=== PATIENT | female | born 1945 | race Caucasian/White ===

== ENCOUNTER 2019-02-01 10:54 | Outpatient (CLI) | payer MEDICARE, OTHER, SELFPAY ==
--- NOTE | 2019-02-01 09:49 | DI.RAD_ITS ---
SYMPTOM/DIAGNOSIS: PAIN LEFT SHOULDER: Two views. No priors At the glenohumeral joint there is subchondral sclerosis and cyst formation, Periarticular osteophytes are seen. There is flattening of the articular surfaces. Mild hypertrophic changes are seen at the acromioclavicular joint. The bones appear intact. Soft tissues are unremarkable. IMPRESSION: Severe osteoarthritis of the left shoulder.
== END 2019-02-01 11:14 ==
PROVIDERS: Visit Provider Orthopaedic Surgery
DX: M19.012 Primary osteoarthritis, left shoulder (principal); M25.512 Pain in left shoulder
CPT/HCPCS: 99201; 99202; 73030

== ENCOUNTER 2019-02-07 06:40 | Day surgery (SDC) | payer MEDICARE, OTHER, SELFPAY ==
[2019-02-07 06:59] VITALS: BP 133/64; PULSE 60; RESP 18; TEMP 36.5; O2SAT 95
[2019-02-07] MEDS: methylPREDNISolone ACETATE 80 MG/ML VIAL (07:43)
--- NOTE | 2019-02-07 07:53 | PDOC.DSDIS_ITS ---
Discharge Plan Disposition Patient Disposition: HOME Condition: Good Discharge Details Reason For Visit: C-ARM GUIDED L SHOULDER INJECTION Attending Provider: Chiki Capellan Primary Care Provider: Unknown,Unknown Home Meds and New Rx's Prescriptions: Continued omeprazole 20 mg capsule,delayed release(DR/EC) 20 mg PO DAILY RF: 0 propranolol 80 mg tablet 80 mg PO DAILY RF: 0 propranolol 20 mg tablet 20 mg PO DAILY RF: 0 simvastatin 20 mg tablet 20 mg PO DAILY RF: 0 montelukast 10 mg tablet 10 mg PO DAILY RF: 0 Breo Ellipta 100-25 mcg/dose blister with device 1 inh IH DAILY RF: 0 fluticasone propionate [Allergy Relief (fluticasone)] 50 mcg/actuation spray,suspension 1 spray JERSON DAILY RF: 0 meloxicam 7.5 mg tablet 7.5 mg PO DAILY PRNRF: 0 Restasis MultiDose 0.05 % drops 1 drp OP Q12H RF: 0 Breo Ellipta 100-25 mcg/dose Blister With Device 1 inh INHALATION DAILY RF: 0 Discharge Instructions Additional Instructions: Rest your L shoulder for next 48 hours. After 48 hours, gradually resume your usual activities as tolerated. Apply ice bag or frozen vegetables to L shoulder 4 times/day for 1 hour each time over next [address] facecloth between skin and ice bag. Take tylenol or ibuprofen for pain,if needed. Follow up with in one month. Referrals: Chiki Capellan MD [ [facility] STAFF PHYSICIAN] - (f/u in one month.) Activity:: Activity as Tolerated Diet:: As Tolerated Discharge Orders Discharge Orders: Discharge Order (Routine); Ordered 02/07/19 Ordered By: Chiki Capellan DS: Diagnosis Discharge Diagnosis (1) Osteoarthritis of left shoulder: Status: Acute
--- NOTE | 2019-02-07 08:04 | DI.RAD_ITS ---
SYMPTOM/DIAGNOSIS: OA LT SHOULDER, INJECTION IN OR C-ARM LEFT SHOULDER: Fluoroscopy Time: 3.9 seconds Fluoroscopy was provided for Dr. Capellan for guidance with shoulder injection. Severe degenerative changes of the glenohumeral joint are demonstrated. Please see procedure note for details.
--- NOTE | 2019-02-07 15:08 | ROE_ITS ---
DATE OF PROCEDURE: February 07, 2019 PREOPERATIVE DIAGNOSIS: Osteoarthritis left shoulder. POSTOPERATIVE DIAGNOSIS: Same. PROCEDURE: C-arm guided injection, left shoulder joint with steroid. ANESTHESIA: Local. SURGEON: Chiki Capellan M.D. INDICATIONS: This is a 73-year-old white female with disabling pain from osteoarthritis of the left shoulder. She is requesting a steroid injection of her left shoulder to try to alleviate her pain an d as a temporizing measure before considering arthroplasty of her shoulder. She has a friend who got good relief from an injection and she wants to try it. The risks and complications of the procedure were explained to the patient in detail preoperatively. PROCEDURE: The patient was taken to the Operating Room on 02/07/19. She was placed supine on the oper ating table. Using the C-arm image intensifier I place a uterine forceps over the shoulder until it' s centered over the humeral head. This is confirmed with the C-arm. I then marked the area with a p en. I prepped the skin with alcohol and put an 18 gauge spinal needle through the area that was jesu ed until I encountered the femoral head. Another AP image with the C-arm confirmed that the needle w as in the joint space. I then injected her shoulder joint with approximately 20 cc's of 0.25% Marcai ne with an epinephrine solution along with 80 mg of Depo-Medrol. I then removed the needle, applied pressure to the puncture wound and then put a Band-Aid on. I proceeded to passively range her should er for a couple of minutes. Within a couple of minutes she had excellent relief of pain and marked i mprovement in both passive and active motion of her left shoulder. The patient was then discharged t o the Day Surgery Unit in good condition. The patient was given instructions to rest her shoulder for the next 48 hours. She is to apply ice t o the shoulder four times a day for an hour each time for the next 48 hours. She should take Tylenol or ibuprofen for pain. After 48 hours she should gradually begin to resume activities with her left shoulder as tolerated. She should follow-up with me in one month.
== END 2019-02-07 08:31 | disposition home or self-care (01) ==
PROVIDERS: PCP Family Medicine; Visit Provider Orthopaedic Surgery
PROC: (CPT 20610; principal; 2019-02-07 07:30)
DX: M19.012 Primary osteoarthritis, left shoulder (principal); M25.512 Pain in left shoulder
CPT/HCPCS: 20610; 77002; J1040

== ENCOUNTER 2019-02-10 11:26 | Outpatient (CLI) | payer MEDICARE, OTHER, SELFPAY ==
--- NOTE | 2019-02-10 09:32 | DI.RAD_ITS ---
SYMPTOM/DIAGNOSIS: BILAT KNEE PAIN LEFT KNEE: Two views were obtained. There is marked loss of the patellofemoral cartilaginous joint space with subchondral sclerosis of the patella and trochlear region of the femur. On the AP view, there is question of lateral patellar subluxation. There is chondrocalcinosis of the medial and lateral tibiofemoral joint. Prominent marginal osteophytes are noted associated with lateral tibiofemoral joint and to a lesser degree patellofemoral joint and medial tibiofemoral joint. CONCLUSION: Degenerative changes as described above. RIGHT KNEE: Two views were obtained. There is marked loss of the cartilaginous joint space of the patellofemoral joint. The patella may be laterally subluxed on the AP view. There are prominent hypertrophic changes seen involving the tibiofemoral joints as well as the patellofemoral joint. CONCLUSION: Degenerative changes as described above, most marked involving patellofemoral joint.
== END 2019-02-10 11:46 ==
PROVIDERS: Visit Provider Orthopaedic Surgery
DX: M25.561 Pain in right knee (principal); M25.562 Pain in left knee; M17.0 Bilateral primary osteoarthritis of knee
CPT/HCPCS: 99213; 73560

== ENCOUNTER → 2019-03-08 09:32 | Outpatient (BNVA) | payer MEDICARE, OTHER, SELFPAY | PROVIDERS: Visit Provider Orthopaedic Surgery | DX: M19.012 Primary osteoarthritis, left shoulder (principal); Z98.890 Other specified postprocedural states | CPT/HCPCS: 99213 ==

== ENCOUNTER 2021-03-12 14:50 | Outpatient (CLI) | payer MEDICARE, OTHER, SELFPAY ==
--- NOTE | 2021-03-12 14:00 | DI.RAD_ITS ---
Exam(s) XR SHOULDER LT COMPLETE 2+V EXAM: XR SHOULDER LT COMPLETE 2+V CLINICAL HISTORY: LEFT SHOULDER PAIN. TECHNIQUE: 2D digital imaging was performed. COMPARISON: CR XR SHOULDER RT COMPLETE 2+V from 03/12/2021 FINDINGS: There advanced osteoarthritic degenerative narrowing changes in the glenohumeral joint [id number] a pposition and a large osteophyte on the inferior articular surface of the humeral head. There is mil d diminution of the subacromial space. On the axial view there is an element of posterior subluxatio n of the humeral head relative the glenoid fossa. Also on the axial views suggestion of possible os acromiale. Only mild degenerative changes evident in the AC joint. IMPRESSION: DATA REPOSITORY: RADIATION DOSE DELIVERED:
--- NOTE | 2021-03-12 14:00 | DI.RAD_ITS ---
Exam(s) XR SHOULDER RT COMPLETE 2+V EXAM: XR SHOULDER RT COMPLETE 2+V CLINICAL HISTORY: RIGHT SHOULDER PAIN. TECHNIQUE: 2D digital imaging was performed. COMPARISON: No exams were available for comparison FINDINGS: No evidence of fracture or dislocation. There are moderate-advanced degenerative changes with mild j oint space narrowing and also osteophyte on the inferior articular surface of the humeral head. No s ubacromial soft tissue calcifications evident. There are 2 calcifications projected over the lateral half of the humeral head probably intraosseous given that there are not seen as extraosseous on the axial image. Possibly related to degenerative subarticular cysts. There are benign appearance. Mil d degenerative changes noted in the AC joint. No evidence of os acromiale. IMPRESSION: DATA REPOSITORY: RADIATION DOSE DELIVERED:
== END 2021-03-12 14:51 | disposition home or self-care (01) ==
LOC: DIORS 14:51
PROVIDERS: Visit Provider Student in an Organized Health Care Education/Training Program
DX: M19.012 Primary osteoarthritis, left shoulder (principal); M25.511 Pain in right shoulder; M19.011 Primary osteoarthritis, right shoulder; M25.512 Pain in left shoulder
CPT/HCPCS: 99203; 99214; 73030

== ENCOUNTER → 2022-01-28 12:59 | Outpatient (BNVA) | payer MEDICARE, OTHER, SELFPAY | PROVIDERS: Visit Provider Student in an Organized Health Care Education/Training Program | DX: M75.102 Unspecified rotator cuff tear or rupture of left shoulder, not specified as traumatic (principal); M75.22 Bicipital tendinitis, left shoulder; M19.012 Primary osteoarthritis, left shoulder | CPT/HCPCS: 99214 ==

== ENCOUNTER → 2022-01-31 00:33 | Outpatient (CLI) | payer MEDICARE, OTHER, SELFPAY ==
--- NOTE | 2022-01-31 07:15 | DI.CT_ITS ---
Exam(s) CT UPPER EXTREMITY LT WO EXAM: CT UPPER EXTREMITY LT WO CLINICAL HISTORY: L SHOULDER PAIN, ARTHRITIS LT SHOULDER REGION, M19.012, OA. TECHNIQUE: Imaging Protocol: Axial computed tomography images with coronal and sagittal reformatted images were created and reviewed. COMPARISON: CR XR SHOULDER LT COMPLETE 2+V from 03/12/2021 FINDINGS: Bones: There is no acute fracture or dislocation. Note is made of an os acromiale. Bony alignment is satisfactory. No cellulitic or osteomyelitic changes are identified. Mild degenerative changes a re seen at the acromioclavicular joint. There are marked degenerative changes seen at the glenohumer al joint with joint space narrowing, osteophytes, subchondral cysts and subchondral sclerosis. No avalos spicious lytic or sclerotic lesions are present. Soft Tissues: There is a 4.4 AP by 3.9 transverse by 5.7 craniocaudad cm hypodense mass in the lower pole of the right thyroid gland. It extends into the superior mediastinum. IMPRESSION: 1. Marked osteoarthritis of the glenohumeral joint. 2. Right thyroid mass. Nonemergent thyroid ultrasound is recommended for further evaluation. Incidental Findings RADIATION DOSE DELIVERED: 608.36mGy.cm Total DLP 608.36mGy.cm Total DLP DATA REPOSITORY: All CT scans at this facility are submitted to the National Radiology Data Registry (NRDR) Dose Index Registry (DIR) with the [employer] (ACR). RADIATION OPTIMIZATION: All CT scans at this facility use at least one of these dose optimization te chniques: automated exposure control; mA and/or kV adjustment per patient size (includes targeted exa ms where dose is matched to clinical indication); or iterative reconstruction.
== END ==
PROVIDERS: Visit Provider Student in an Organized Health Care Education/Training Program
DX: M19.012 Primary osteoarthritis, left shoulder (principal); E07.9 Disorder of thyroid, unspecified
CPT/HCPCS: 73200

== ENCOUNTER 2022-02-18 01:28 | Outpatient (CLI) | payer MEDICARE, OTHER, SELFPAY ==
[2022-02-18 12:26] LABS: Source Nasal/Nares
[2022-02-18 14:35] LABS: COVID-19 PCR Negative (Negative)
== END 2022-02-18 01:29 | disposition home or self-care (01) ==
PROVIDERS: Visit Provider Student in an Organized Health Care Education/Training Program
DX: Z20.822 Contact with and (suspected) exposure to COVID-19 (principal); Z01.818 Encounter for other preprocedural examination
CPT/HCPCS: 87635

== ENCOUNTER 2022-02-18 20:06 | Outpatient (REF) | payer MEDICARE, OTHER, SELFPAY ==
[2022-02-18 16:23] LABS: HCT 35.9 % (36.0-46.0); HGB 11.4 g/dL (11.2-15.7); MCH 28.1 pg (27.0-33.0); MCHC 31.8 % (32.0-36.0); MCV 89 fL (80-95); Platelet Count 199 10^3/uL (130-400); RBC 4.05 10^6/uL (3.93-5.22); RDW 13.9 % (11.7-14.6); RDW-SD 45.3 fL; WBC 6.94 10^3/uL (4.4-10.8)
[2022-02-18 16:38] LABS: ALT 27 U/L (14-59); AST 22 U/L (15-37); Albumin 3.4 g/dL (3.4-5.0); Alkaline Phosphatase 75 U/L (46-116); Anion Gap 10.1 mmol/L (3-11); BUN 19 mg/dL (7-18); Bilirubin, Total 0.4 mg/dL (0.2-1.0); CO2 25.9 mmol/L (21.0-32.0); CREATININE 0.9 mg/dL (0.55-1.02); Calcium 8.8 mg/dL (8.5-10.1); Chloride 104 mmol/L (98-107); Glucose 104 mg/dL (74-106); Potassium 4.3 mmol/L (3.5-5.1); Sodium 140 mmol/L (136-145); Total Protein 6.3 g/dL (6.4-8.2)
== END 2022-02-18 20:07 | disposition home or self-care (01) ==
LOC: NCHCN 20:06
PROVIDERS: Visit Provider Family Medicine
DX: Z01.818 Encounter for other preprocedural examination (principal)
CPT/HCPCS: 80053; 85027

== ENCOUNTER 2022-02-20 07:21 | Inpatient (IN) | payer MEDICARE, OTHER, SELFPAY ==
[2022-02-20] VITALS (13 sets, daily range): BP systolic 115–178; BP diastolic 60–78; PULSE 51–79; RESP 13–21; TEMP 35–36.9; O2SAT 90–98; BMI 30.4
--- NOTE | 2022-02-20 07:15 | DI.RAD_ITS ---
Exam(s) XR SHOULDER LT COMPLETE 2+V EXAM: XR SHOULDER LT COMPLETE 2+V CLINICAL HISTORY: Portable in PACU postop. TECHNIQUE: 2D digital imaging was performed. Three views. Portable exam COMPARISON: CT CT UPPER EXTREMITY LT WO from 01/31/2022 FINDINGS: Patient is status post placement of a reverse shoulder prosthesis. The positioning is suboptimal wit h the prosthesis appears satisfactorily aligned. There is residual postsurgical air in the soft tiss ue. DATA REPOSITORY: RADIATION DOSE DELIVERED:
[2022-02-20] MEDS: Lactated Ringers 1,000 ML 30 ML IV ×2 (08:00→21:11)
--- NOTE | 2022-02-20 08:22 | W.ANESPRE ---
General Info Date of Service Date Performed: 02/20/22 Height: 5 ft 6 in Weight: 85.4 kg Body Mass Index (BMI): 30.4 Surgical Procedure: Operation Date: 02/20/22 09:55 Proposed Procedure Side Surgeon p Reverse Shoulder Total Arthroplasty w/Biceps Tenodesis and any other indicated procedures Left Agustin Patrick MD Pre-Op Diagnosis Post-Op Diagnosis (1) Arthritis of left shoulder region (2) Left rotator cuff tear (3) Tendinitis of long head of biceps brachii of left shoulder Meds Allergies and Home Medications Allergies Allergy/AdvReac Type Severity Reaction Status Date / Time No Known Drug Allergies AdvReac Verified 02/20/22 07:04 Home Medication Medication Instructions Recorded fluticasone propionate 50 1 spray intranasal DAILY 02/01/19 mcg/actuation nasal spray,suspension (Allergy Relief (fluticasone)) meloxicam 7.5 mg tablet 7.5 mg PO DAILY PRN 02/01/19 montelukast 10 mg tablet 10 mg PO DAILY 02/01/19 propranolol 80 mg tablet 80 mg PO DAILY 02/01/19 simvastatin 20 mg tablet 20 mg PO DAILY 02/01/19 clonazepam 0.5 mg disintegrating 0.5 mg PO DAILY 03/12/21 tablet famotidine 20 mg tablet 20 mg PO DAILY 03/12/21 fluticasone fur. 100 mcg-umeclid 1 inh inhalation DAILY 03/12/21 62.5 mcg-vilant 25 mcg inhalat.powder (Trelegy Ellipta) lifitegrast 5 % eye drops in a 1 drp ophthalmic (eye) BID 03/12/21 dropperette (Xiidra) pantoprazole 40 mg tablet,delayed 40 mg PO DAILY 03/12/21 release propranolol 20 mg tablet 40 mg PO DAILY 01/28/22 aspirin 81 mg capsule,delayed 81 mg PO DAILY 02/19/22 release cetirizine 10 mg tablet (Zyrtec) 10 mg PO DAILY PRN 02/20/22 Current Visit Medications: Current Medications Generic Name Dose Route Start Last Admin Trade Name Freq PRN Reason Stop Dose Admin Acetaminophen 1,000 mg 02/20/22 07:21 Acetaminophen 500 Mg Tab PO Q6H PRN PRN Cefazolin Sodium 1,000 mg 02/20/22 07:30 Cefazolin 1,000 Mg Vial IVPB 02/20/22 23:31 Q8H ISIDRO Diphenhydramine HCl 25 mg 02/20/22 07:21 Diphenhydramine 25 Mg Cap PO Q6H PRN PRN Docusate Sodium 100 mg 02/20/22 07:21 Docusate Sodium 100 Mg Cap PO BID PRN PRN Famotidine 20 mg 02/20/22 08:30 Famotidine 20 Mg Tab PO DAILY [facility] Fluticasone Propionate gm 02/20/22 08:30 Fluticasone Nasal [place] 16 Gm Btl NS DAILY [facility] Ringer's Solution 1,000 mls @ 30 mls/hr 02/20/22 06:00 02/20/22 08:00 IV 03/21/22 23:59 30 mls/hr INFUSION ISIDRO Administration Cefazolin Sodium/Dextrose 2 gm in 50 mls @ 100 mls/hr 02/20/22 06:00 Ancef Duplex IVPB 02/20/22 16:00 PREOP ISIDRO Tranexamic Acid 1,000 mg/ 120 mls @ 480 mls/hr 02/20/22 06:00 Sodium Chloride IVPB 02/20/22 16:00 PREOP ISIDRO Ondansetron HCl 4 mg/ Sodium 52 mls @ 200 mls/hr 02/20/22 07:21 Chloride IVPB Q6H PRN PRN IV Miscellaneous Supplies 1 each 02/20/22 06:00 Iv Access IV 03/21/22 23:59 DIRECTED [facility] Lactobacillus Acidophilus/Casei 1 cap 02/21/22 08:30 L. Acidophilus, Casei, Rhamnosus Cap PO DAILY [facility] Montelukast Sodium 10 mg 02/20/22 08:30 Montelukast 10 Mg Tab PO DAILY [facility] Morphine Sulfate 2 - 4 mg 02/20/22 07:21 Morphine 10 Mg/Ml Vial IVP Q2H PRN PRN Naproxen 250 - 500 mg 02/20/22 07:21 Naproxen 500 Mg Tab PO BID PRN PRN Non-Formulary Medication 81 mg 02/21/22 08:30 Aspirin PO DAILY [facility] Non-Formulary Medication 0.5 mg 02/20/22 08:30 Clonazepam PO DAILY [facility] Non-Formulary Medication 1 inh 02/20/22 08:30 [id number] [Trelegy Ellipta] IH DAILY [facility] Non-Formulary Medication 1 drp 02/20/22 08:30 Lifitegrast [Xiidra] OP BID [facility] Non-Formulary Medication 7.5 mg 02/20/22 07:23 Meloxicam PO DAILY PRN Non-Formulary Medication 80 mg 02/20/22 08:30 Propranolol PO DAILY [facility] Oxycodone HCl 5 - 10 mg 02/20/22 07:21 Oxycodone 5 Mg Tab PO Q4H PRN PRN Pantoprazole Sodium 40 mg 02/20/22 08:30 Pantoprazole 40 Mg Tabcr PO DAILY [facility] Propranolol HCl 40 mg 02/20/22 08:30 Propranolol 20 Mg Tab PO DAILY [facility] Simvastatin 20 mg 02/20/22 08:30 Simvastatin 20 Mg Tab PO DAILY [facility] Sodium Chloride 0 ml 02/20/22 06:00 Normal Saline Flush 10 Ml Syr IV 03/21/22 23:59 PRN PRN Sodium Chloride 0 ml 02/20/22 06:00 Normal Saline 10 Ml Vial IJ 03/21/22 23:59 DIRECTED PRN Sterile Water 0 ml 02/20/22 06:00 Water,Injection,Sterile 10 Ml Vial IJ 03/21/22 23:59 DIRECTED PRN PFSH Active Problems Active Problems: Problem Status Onset Code 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 Tendinitis of long head of biceps brachii of left shoulder Toxoplasmosis 1971 Surgical History Surgical History H/O: hysterectomy History of cataract surgery (right) History of eyelid surgery (bilateral) Tobacco Smoking/Tobacco Use Status: Never Alcohol Alcohol Intake: current Alcohol intake frequency: 0-2 drinks per day Alcohol type: hard liquor Substance Use Substance use type: does not use Vital Signs and Lab Results Vital Signs Most Recent Vital Signs in EMR: Most Recent Vital Signs Temp Pulse Resp BP Pulse Ox 36.4 C L 62 16 136/67 98 02/20/22 07:42 02/20/22 07:42 02/20/22 07:42 02/20/22 07:42 02/20/22 07:42 Lab Results Blood Type / Crossmatch: No Data to Display Complete Blood Count: White Blood Count 6.94 10^3/uL (4.4-10.8) 02/18/22 10:50 Red Blood Count 4.05 10^6/uL (3.93-5.22) 02/18/22 10:50 Hemoglobin 11.4 g/dL (11.2-15.7) 02/18/22 10:50 Hematocrit 35.9 % (36.0-46.0) L 02/18/22 10:50 Platelet Count 199 10^3/uL (130-400) 02/18/22 10:50 Complete Metabolic Panel: Sodium Level 140 mmol/L (136-145) 02/18/22 10:50 Potassium Level 4.3 mmol/L (3.5-5.1) 02/18/22 10:50 Chloride Level 104 mmol/L (98-107) 02/18/22 10:50 Carbon Dioxide Level 25.9 mmol/L (21.0-32.0) 02/18/22 10:50 Blood Urea Nitrogen 19 mg/dL (7-18) H 02/18/22 10:50 Creatinine 0.9 mg/dL (0.55-1.02) 02/18/22 10:50 Estimated GFR/1.73 m2 >= 60.00 (mL/min/1.73m2) 02/18/22 10:50 Calcium Level 8.8 mg/dL (8.5-10.1) 02/18/22 10:50 Albumin 3.4 g/dL (3.4-5.0) 02/18/22 10:50 Glucose Level 104 mg/dL (74-106) 02/18/22 10:50 Liver Function Panel: Alanine Aminotransferase (ALT/SGPT) 27 U/L (14-59) 02/18/22 10:50 Aspartate Amino Transf (AST/SGOT) 22 U/L (15-37) 02/18/22 10:50 Coagulation Panel: No Data to Display Cardiac Panel: No Data to Display Arterial Blood Gas: No Data to Display Venous Blood Gas: No Data to Display Pancreas Panel: No Data to Display Thyroid Panel: No Data to Display Infectious Disease: Coronavirus (COVID-19)(PCR) Negative (Negative) 02/18/22 11:33 Coronavirus 2019 Source Nasal/Nares 02/18/22 11:33 Blood Cultures: No Data to Display Toxicology Panel: No Data to Display Anesthesia Assessment and Plan Anesthesia History Personal History: No History of Anesthesia Complications Family History: No Family History of Anesthesia Complications Exercise Tolerance Exercise Tolerance: Metabolic Equivalents>4 Cardiac & Pulmonary Exam Cardiac Exam: Normal S1/S2 Heart Sounds Pulmonary Exam: Clear Bilateral Breath Sounds Implantable Cardiac Device Does patient have a Pacemaker or an ICD?: No Airway Exam Known Difficult Airway: No Mallampati Class: 2 Mouth Opening: Normal (> 3cm) Thyromental Distance: Greater than 3 cm Neck Range of Motion: Full ROM Neck Circumference: Normal Teeth Condition: Normal Dentition ASA Classification ASA Score: ASA 2 Emergency Case?: No NPO Status NPO Status: NPO Clears >2 hours, Solids >8 hours Anesthesia Plan Resuscitation Status: Full Code Anesthesia Technique: General Anesthesia Airway Planned: Endotracheal Tube Pain Management: Surgeon and patient request nerve block Monitors Used: Standard Monitors and Arterial Line (+/-) Preoperative Comments:: 76 yo female for left total shoulder. 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
[2022-02-20] MEDS: ceFAZolin 2 GM/50 ML BAG IVPB (10:12)
[2022-02-20] MEDS: Bupivacaine 0.25% Pres-Free W/EPI 30 ML VIAL (10:47)
--- NOTE | 2022-02-20 10:58 | W.ANESNERVE ---
Nerve Block Single Injection Procedure Date and Time Date Performed: 02/20/22 Procedure Start: 09:16 Location Where Procedure Performed Procedure Location: Day Surgery Unit Reason Performed: Postoperative Analgesia Requesting Provider: Agustin Patrick Timeout Performed Timeout Performed: Yes Monitoring Used ECG, Blood Pressure and SpO2 Sterility Sterility: Hand Hygiene, Surgical Cap, Surgical Mask, Sterile Gloves and Chlorhexidine Sedation Given During Procedure Sedation Given (Indicate Dose Given): No Sedation given Patient Mental Status Patient Mental Status: Awake Nerve Block 1st Nerve Block: Laterality: Left Block Type: Interscalene Needle / Catheter Used: 100mm SonoPlex II Local Anesthetic Bolus (Indicate Dose Given): Lidocaine used for local infiltration of skin, Injected in 3-5ml increments after negative blood aspiration and Bupivacaine 0.5% Dose:: 15 mL Additives (Indicate Dose Given): None Ultrasound: Sterile probe cover and gel used Ultrasound Image Saved?: Yes Nerve Stimulator: Supplement to Ultrasound use and No twitch or parasthesia noted < 0.5 mA Paresthesia: None Procedure Tolerated: No Complications Procedure Outcome: Successful Performed By: Saúl Shipman
--- NOTE | 2022-02-20 12:00 | ROE_ITS ---
Operative Note Operative Note DATE OF PROCEDURE: 02/20/22 PRE-OP DIAGNOSIS: Left: 1. End-stage glenohumeral arthritis 2. Rotator cuff tearing 3. Long head of the biceps tendinopathy POST-OP DIAGNOSIS: same PROCEDURE: Left: 1. Reverse total shoulder arthroplasty, CPT # 90741 2. Open biceps tenodesis, CPT # 04170 The social work assistant was medically required as this procedure involves retraction, protection of neurovascular structures, and manipulation of multiple instruments and implants at the same time, which cannot be done without a skilled social work assistant. SURGEON: Agustin Patrick ANTIQUE AUTOMOBILES REPAIRER: Janee Johnston ANESTHESIA TYPE: General LMA/ETT and Primary Nerve Block Refer to Anesthesia Record ESTIMATED BLOOD LOSS: 75 COMPLICATIONS: None Patient was transported to: PACU Patient's condition: stable Implants: [employer] modular glenoid system baseplate 24 mm 20 degree full wedge augment [employer] modular glenoid system central post 25 mm [employer] modular glenoid system peripheral nonlocking screw 28 mm inferior, locking screws 20 mm superior, 20 mm posterior, 20 mm anterior [employer] modular glenoid system glenosphere 36 +4 mm lateralized [employer] humeral stem 135 degrees size 5 [employer] suture cup size 36 neutral offset [employer] humeral insert size 36 +3 mm constrained Indications: Please see complete medical record for details. Findings: Significant long head biceps tenosynovitis, high-grade subscapularis and supraspinatus rotator cuff tearing. Limited intact posterior superior rotator cuff. Profound glenohumeral arthritis, humeral head deformity, osteophytes, and glenoid posterior erosion. Significant anterior and posterior capsular contracture with chronic significant posterior humeral head translation relative to glenoid. Procedure Description: In the operating room, general anesthesia was induced. The patient was positioned beachchair on the operating room table. All bony prominences were well-padded. Preoperative antibiotics were administered. The shoulder was prepped and draped in the usual sterile fashion for shoulder arthroplasty. The correct patient, procedure, and side of the procedure were all verified prior to incision. The deltopectoral approach was taken to the anterior shoulder. Care was taken to bluntly dissect the interval between the deltoid and pectoralis major muscles and to identify the cephalic vein within its fat stripe. The the vein was mobilized laterally. Subdeltoid space and conjoined tendon were freed of adhesions. The long head of the biceps tendon was identified just lateral to the lesser tuberosity. The uppermost margin of the pectoralis major tendon was released from the proximal humerus. The long head of the biceps tendon was tenodesed in situ using SutureTape in a [id number] fashion securing it superior margin the pectoralis major tendon. The biceps tendon was amputated and followed proximally to identify the rotator interval. Limited subscapularis peel was performed readily releasing the remnant tissue. The remainder of the anterior capsule was contracted and scarred around large anterior and inferior osteophytes. Carefully, the osteophytes were removed with a rongeur while increasing exposure and external rotation and progressively releasing the capsule working on bone safely. The extremely deformed humeral head was delivered anteriorly after additional anterior and posterior capsular releases given the chronically scarred posterior position. The humeral head was significantly diminutive. Bone was soft. Appropriate coagulation was achieved especially interiorly. The anatomic neck was cut using an oscillating saw to match patient anatomy and preserved bone for planned implants with bone from humeral head prep brought back table in case there was a need for future bone grafting. The proximal humeral protection plate was used to provisionally confirm suture cup and glenosphere size. Attention was then turned to the glenoid and retractors were placed and a circumferential release performed using the long head of the biceps remnant to remove soft tissue about the glenoid rim. Care was taken inferiorly to work on bone only between 5 and 7:00 o'clock and bluntly elevate tissues inferiorly. The VIP guide was placed on the glenoid and used to confirm placement and trajectory of the central guidepin. The guidepin was adjusted using the full wedge augment tool or die drawing checker as the guide and inserted and advanced just through the far cortex ensuring adequate central fixation length. Depth gauge was used to confirm length. The 20 degree augment tool or die drawing checker was used to confirm appropriate placement on this is significantly deformed and diminutive glenoid taking care to ensure an appropriate rim of bone anteriorly inferiorly and posteriorly. The augment was placed mostly posteriorly to accommodate for the significant glenoid deformity and allow for correction from about 30 degrees retroversion to about 20 degrees retroversion while preserving glenoid bone stock and avoiding excessive medialization. The military pilot drill was done over the guidewire followed by the eccentric reamer taking care to maintain and oriented appropriately. There was limited bone available so the glenoid was prepared as carefully as possible. The tool or die drawing checker confirmed appropriate glenoid preparation for the augmented baseplate. The drill for the post was done over the guidewire and withdrawn with the guidewire confirming length. The baseplate was impacted and fully compressed onto the glenoid surface. The nonlocking guide was used initially to place an inferior compression screw aiming toward the scapular spine to optimize length followed by the locking guide to drill and place appropriately lengthed superior, anterior, and posterior screws. The [id number] reamer was used to confirm adequate peripheral reaming. The glenosphere was applied with the admission discharge rn and then impacted to engage the Thapa taper. It was then locked with appropriate countersinking of the setscrew. The glenosphere was inspected and found to have good fit, appropriate positioning, and no soft tissue or bony impingement. Attention was then turned back to the proximal humerus, which was delivered from the wound and maintained in external rotation. Reamer was started appropriately posterior to the bicipital groove taking care to maintain in line approach with the humeral canal. Reaming was done to size 5 and stopped giving the significantly diminutive proximal humerus. The initial size 5 broach was used to open the proximal humerus sunk to the appropriate depth while maintaining approximately 30 degrees retroversion. There was good metaphyseal fit and rotational control of the proximal humerus with this size. The neutral offset guide was used to ream for the suture cup. The humeral trial cup was connected. Trialing was commenced with +3 mm liner. The shoulder was reduced and taken through range of motion. These trial components demonstrated good stability and appropriate tension on the deltoid and conjoined tension. The trial components were removed from the proximal humerus. The wound was copiously irrigated with normal saline. There was no subscapularis available for repair. The the proximal humeral stem and suture cup were assembled and brought over the proximal humerus. A small amount of vancomycin powder was distributed in the proximal humerus. The humeral component and suture cup were impacted into place. A trial 6 mm liner was added, but would have placed too much tension on the conjoined tendon. Instead, the +3 mm liner was trialed again. It demonstrated excellent conjoined tension, good deltoid tension, and reasonable stability with the exception of moderate posterior translation with direct stress on the humerus and the arm adducted, which was not unexpected given the longstanding posterior glenohumeral subluxation and deformity. Appropriate posterior capsular release was confirmed. Decision was made to proceed with constrained liner given this posterior instability and lack of anterior soft tissue and subscapularis for repair. The final +3 mm constrained liner was impacted, and range of motion, stability, and tension confirmed. The shoulder was copiously irrigated with Betadine and normal saline. Vancomycin powder was distributed deeply about the shoulder and through subcutaneous tissues. The deltopectoral interval was approximated with 0 Vicryl. Subcutaneous tissue was irrigated then closed using 2-0 Monocryl in a buried interrupted fashion. Skin was closed using 3-0 Monocryl in a buried subcuticular fashion. Skin glue was applied to the incision. A silver impregnated bandage was placed over the incision. The extremity was placed into a shoulder immobilizer. The patient awoke from anesthesia without complication and was taken to the recovery room in stable condition.
--- NOTE | 2022-02-20 15:26 | W.ANESPOSTOP ---
Postoperative Evaluation Date, Time and Location Date Performed: 02/20/22 Time Performed: 15:00 Patient Location: PACU Vital Signs Most Recent Imported Vital Signs: Most Recent Vital Signs Temp Pulse Resp BP Pulse Ox 35 C L 62 16 159/68 H 96 02/20/22 15:00 02/20/22 15:00 02/20/22 15:00 02/20/22 15:00 02/20/22 15:00 Pain Score Most Recent Pain Score: Most Recent Pain Score Pain Level [Left Shoulder] 0 02/20/22 15:05 Pain Level 0 02/20/22 15:00 Assessment Mental Status: Awake (Alert & Oriented to Patient Baseline) Airway and Respiratory Function: Patent airway with normal (patient baseline) respiratory exam Cardiovascular Function: Hemodynamically Stable Hydration Status: Adequately Hydrated Nausea & Vomiting: No Nausea or Vomiting Pain: Pt. Denies Any Pain Peripheral Nerve Block: Regional nerve block not resolved at time of post operative discharge
--- NOTE | 2022-02-20 16:33 | W.PM.PROGNOT ---
Date of Service Date of service: 02/20/22 Time of Service: 16:38 Assessment and Plan Assessment and plan (1) Left rotator cuff tear: Status: Acute Assessment and plan: 76-year-old female postop day #0 status post left reverse total shoulder arthroplasty (no subscap repair, constrained liner) with biceps tenodesis Complete 24 hours postoperative antibiotics Void trial. If unable to void, place gongora and discontinue catheter AM postop day #1 Pain control-Multimodal as ordered. Physical therapy and Occupational Therapy ordered: MODIFIED reverse TSA protocol with constrained liner and no rotator cuff repair. Should remove sling while in bed or resting. Recommend sling when ambulatory or out of home. ACTIVE range of motion to the shoulder OKAY. Active range of motion elbow, wrist, and hand. May use upper extremity gently for essential ADLs including light weightbearing. Continue mechanical DVT prophylaxis with SCDs and/or TESSIE hose Start 81 mg ASA 24 hours postoperative Plan on discharge home tomorrow with outpatient physical therapy Subjective Subjective Interval history since last seen: No pain, feeling well and waking up. Ready to go to the bathroom Exam Narrative Exam Narrative: Comfortable, relatively alert, oriented Breathing comfortably on room air 2+ left radial pulse, regular rate and rhythm Left shoulder dressing clean dry and intact. Nerve block still in place, but has some intact sensation light touch axillary nerve. Very limited motor function at this time. No signs of blood clot or infection. Tolerates gentle circumduction with no pain, no mechanical symptoms, or instability. Objective Last Vital Signs Temp 95 F L 02/20/22 15:00 Pulse 60 02/20/22 15:26 Resp 16 02/20/22 15:26 BP 147/73 H 02/20/22 15:26 Pulse Ox 94 02/20/22 15:26
--- NOTE | 2022-02-20 16:45 | DI.RAD_ITS ---
Exam(s) XR SHOULDER LT COMPLETE 2+V EXAM: XR SHOULDER LT COMPLETE 2+V INDICATION: Inadequate PACU XRs. COMPARISON: CR XR SHOULDER LT COMPLETE 2+V from 02/20/2022 TECHNIQUE: 2D digital imaging was performed. Two portable views FINDINGS: Patient is status post placement of a reverse shoulder prosthesis. The alignment appears satisfactor y. DATA REPOSITORY: RADIATION DOSE DELIVERED:
[2022-02-20] MEDS: Montelukast 10 MG TAB PO (18:01)
[2022-02-20] MEDS: ceFAZolin 1 GM/50 ML BAG IVPB (18:36)
[2022-02-20] MEDS: Normal Saline Flush 10 ML SYR IV (18:36)
[2022-02-20] MEDS: Budesonide/Formoterol 80/4.5 6.9 GM 60 PUFF INH IH (20:57)
[2022-02-20] MEDS: clonazePAM 0.5 MG TAB PO (20:57)
[2022-02-20] MEDS: Simvastatin 20 MG TAB PO (20:57)
[2022-02-20] MEDS: Famotidine 20 MG TAB PO (20:58)
[2022-02-20] MEDS: Acetaminophen 500 MG TAB 1000 MG PO (21:08)
[2022-02-21] MEDS: ceFAZolin 1 GM/50 ML BAG IVPB ×2 (01:42→10:15)
[2022-02-21 03:05] VITALS: BP 119/69; PULSE 85; RESP 18; TEMP 36; O2SAT 92
[2022-02-21] MEDS: Naproxen 500 MG TAB PO (06:33)
[2022-02-21] MEDS: Acetaminophen 500 MG TAB 1000 MG PO (06:34)
--- NOTE | 2022-02-21 07:30 | DSE_ITS ---
Date of service: 02/21/22 Time of Service: 07:30 DS: Diagnosis Discharge Diagnosis (1) Arthritis of left shoulder region: Status: Acute (2) Left rotator cuff tear: Status: Acute Discharge Plan Disposition Patient Disposition: HOME Condition: Stable Discharge Details Reason For Visit: Left Shoulder Surgery Admit Date/Time: 02/20/22 07:21 Admit Provider: Agustin Patrick Attending Provider: Agustin Patrick Primary Care Provider: Walt Moseley Hospital Course Hospital Course: Left reverse TSA 02/20/2022 Home Meds and New Rx's Prescriptions: New naproxen 250 mg tablet 250 - 500 mg PO BID PRNQty: 40 0RF Rx Instructions: take with a meal aspirin 81 mg tablet,delayed release (DR/EC) 81 mg PO DAILY 14 Days Qty: 14 0RF oxycodone 5 mg tablet 5 - 10 mg PO Q4H MDD 30 mg PRN (Reason: moderate to severe pain) Qty: 18 0RF Continued simvastatin 20 mg tablet 20 mg PO DAILY montelukast 10 mg tablet 10 mg PO DAILY fluticasone propionate [Allergy Relief (fluticasone)] 50 mcg/actuation spray,suspension 2 spray JERSON HS Rx Instructions: 2 SPRAYS EACH NOSTRIL meloxicam 7.5 mg tablet 7.5 mg PO DAILY PRN Xiidra 5 % dropperette 1 drp ophthalmic (eye) BID Rx Instructions: administer approximately 12 hours apart Trelegy Ellipta 100-62.5-25 mcg blister with device 1 inh inhalation DAILY pantoprazole 40 mg tablet,delayed release (DR/EC) 40 mg PO DAILY famotidine 20 mg tablet 20 mg PO DAILY aspirin 81 mg Capsule,Delayed Release(Dr/Ec) 81 mg PO DAILY cetirizine [Zyrtec] 10 mg Tablet 10 mg PO DAILY PRN clonazepam 0.5 mg Tablet 0.5 mg PO DAILY propranolol 120 mg Capsule,Extended Release 24 Hr 120 mg PO DAILY Discharge Instructions Additional Instructions: Surgery: Left reverse total shoulder arthroplasty (no subscap repair, constrained liner) with biceps tenodesis Activity: Do not lift anything heavier than a coffee. You should keep your arm at your side in a neutral position at all times except for gentle range of motion exercises, physical therapy, and essential activities. You should use the sling whenever you are out of the house. You may have to adjust the abduction pillow or remove it for comfort. At home it is best to remove the sling and rest the arm on a pillow at your side or support the operative side with your other hand. A physical therapy prescription will be sent electronically to start in 2-3 weeks. MODIFIED reverse TSA Protocol: ACTIVE ROM OK Postoperative Weeks 0-6 ?Immobilization: Sling may be removed for therapeutic exercises, resting in bed or chair, and bathing ?Motion exercises: Pendulum exercises, elbow range- of-motion exercises, wrist [id number] exercises, and elementary math tutor strengthening ?Restrictions: No active internal rotation or backwards extension Postoperative Weeks 6-12 ?Immobilization: Sling discontinued ?Motion exercises: Shoulder passive range of motion, advancing to active- assisted range of motion, and finally active range of motion with a goal of forward flexion to 90? and external rotation of 20? ?Strengthening exercises: Light, resisted forward flexion, external rotation, and abduction limited to isometric exercises and therapy bands with concentric motions only. Continue elementary math tutor strengthening ?Restrictions: No resisted internal rotation or backwards extension. No scapular retraction exercises with therapy bands Postoperative Months 3-12 ?Motion exercises: Increase eyavj-ln-rwpily exercises to achieve full motion, with passive stretching at end ranges ?Strengthening: Begin resisted, internal rotation and backwards extension initially with isometric exercises advancing to light therapy bands and then weights. Advance other shoulder strengthening exercises to include the rotator cuff, deltoid, and scapular stabilizers. Advance to functional strengthening, including plyometric exercises and core strengthening. Prescriptions: Aspirin 81 mg take 1 daily to prevent a blood clot for 2 weeks Naproxen 250 mg take 1-2 every 12 hours with a meal as needed for moderate pain Oxycodone 5 mg take 1-2 every 4-6 hours as needed for severe pain You may use [id number] Tylenol (acetaminophen) as needed for mild pain. These pain medications may be taken all at once or in different combinations as needed. Also, recommend Colace (docusate) as a stool softener as surgery and pain med icine cause constipation. You may try [id number]-alp-[id number] diphenhydramine (Benadryl) 25-50 mg nightly as a sleep aid Dressings: Leave dressing in place until follow-up. Keep clean and dry at all times. No showers please. Follow-up: 10-[address] Patrick Please call the office during business hours with any questions or concerns. Let us know right away if you develop any redness, drainage, fevers, chest pain, or trouble breathing. Do not drink alcohol or drive for at least 24 hours after anesthesia. Activity:: RTSA protocol Equipment/Supplies:: Shoulder immobilizer Diet:: As Tolerated Discharge Orders Discharge Orders: Discharge Order (Routine); Ordered 02/21/22 Ordered By: Agustin Patrick DS: Summary Time Spent with Patient providing and/or coordinating discharge services: Less than 30 minutes Status at Discharge Functional status at discharge: independent ambulation Overall status at discharge: patient is progressing back to baseline Mental Status: mental status grossly normal Speech and Movement: speech and movement normal Mood: congruent mood Affect: normal affect Exam Narrative Exam Narrative: Complains of some neck regional anesthetic injection site pain and mild discomfort about the shoulder. Had difficulty sleeping last night. Denies any chest pain, shortness of breath, or significant problems. Comfortable, alert, oriented Breathing comfortably on room air 2+ left radial pulse, regular rate and rhythm Left shoulder dressing clean dry and intact. Nerve block largely worn off with nearly intact sensation to light touch throughout left upper extremity including shoulder and axillary nerve Demonstrates moderately intact motor elbow wrist and hand. No motor about shoul liang yet. No signs of blood clot or infection. Tolerates gentle circumduction with mild discomfort No ulnar nerve or cubital tunnel symptoms or problems Psych Mental Status: mental status grossly normal Speech and Movement: speech and movement normal Mood: congruent mood Affect: normal affect DS: Data Vitals/I&O Vitals and I&O: Intake & Output 02/19/22 02/19/22 02/20/22 11:59 23:59 11:59 Weight 190 lb 0.016 oz PFSH All Active Problems Degenerative joint disease of right knee (Acute) Left knee DJD (Acute) Arthritis of left shoulder region (Acute) Arthritis of right shoulder region (Acute) Left rotator cuff tear (Acute) Medical History Asthma Broken wrist (left) Essential tremor (bilateral legs, per pt) 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
[2022-02-21 07:41] VITALS: BP 133/70; PULSE 74; RESP 18; TEMP 36; O2SAT 92
[2022-02-21] MEDS: oxyCODONE 5 MG TAB PO ×2 (07:52→13:00)
[2022-02-21] MEDS: Aspirin E.C. 81 MG TABEC PO (07:52)
[2022-02-21] MEDS: Montelukast 10 MG TAB PO (07:53)
[2022-02-21] MEDS: Pantoprazole 40 MG TABCR PO (07:53)
[2022-02-21] MEDS: Propranolol 60 MG CAPCR 120 MG PO (07:53)
[2022-02-21] MEDS: Tiotropium Bromide-Respimat 10 PUFF INH 2 PUFF IH (08:33)
[2022-02-21] MEDS: Budesonide/Formoterol 80/4.5 6.9 GM 60 PUFF INH IH (08:35)
--- NOTE | 2022-02-21 09:18 | OT.INIE ---
Occupational Therapy Notes Inpatient Occupational Therapy Evaluation Date: 02/21/22 Referring Doctor:Agustin Patrick MD OT Orders: Modified reverse TSA protocol, AROM ok Precautions: TSA protocol, Urgent, Full PATIENT PROFILE/ADMITTING DIAGNOSIS: Pt is a 76 year old female who was admitted post op a modified reverse TSA protocol with AROM ok. Protocol per MD note is as follows: Activity: Do not lift anything heavier than a coffee. You should keep your arm at your side in a neutral position at all times except for gentle range of motion exercises, physical therapy, and essential activities.? You should use the sling whenever you are out of the house.? You may have to adjust the abduction pillow or remove it for comfort.? At home it is best to remove the sling and rest the arm on a pillow at your side or support the operative side with your other hand.? A physical therapy prescription will be sent electronically to start in 2-3 weeks. MODIFIED reverse TSA Protocol: ACTIVE ROM OK Postoperative Weeks 0-6 ?Immobilization: Sling may be removed for therapeutic exercises, resting in bed or chair, and bathing ?Motion exercises: Pendulum exercises, elbow range- of-motion exercises, wrist [id number] exercises, and support dba strengthening ?Restrictions: No active internal rotation or backwards extension Postoperative Weeks 6-12 ?Immobilization: Sling discontinued ?Motion exercises: Shoulder passive range of motion, advancing to active-assisted range of motion, and finally active range of motion with a goal of forward flexion to 90? and external rotation of 20? ?Strengthening exercises: Light, resisted forward flexion, external rotation, and abduction limited to isometric exercises and therapy bands with concentric motions only. Continue support dba strengthening ?Restrictions: No resisted internal rotation or backwards extension. No scapular retraction exercises with therapy bands Postoperative Months 3-12 ?Motion exercises: Increase [id number] exercises to achieve full motion, with passive stretching at end ranges ?Strengthening: Begin resisted, internal rotation and backwards extension initially with isometric exercises advancing to light therapy bands and then weights. Advance other shoulder strengthening exercises to include the rotator cuff, deltoid, and scapular stabilizers. Advance to functional strengthening, including plyometric exercises and core strengthening. 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 She states that she has been limited for a while with her (L) shoulder however reports that she was (I). She enjoys staying active and playing tennis. In [place] she has a walk in shower with seat, grab bars and has no difficulty with her functional activity tolerance to perform this. she is well prepared for her post op home return as she has modified dressing clothes and routines and great social support here in [place]. Equipment owned/DME: None SUBJECTIVE: Pt states that she is doing well, she notes that her nerve block is wearing off and she has some pain in her neck. She states that she is going home today. OBJECTIVE: General Observation: Pleasant, (L) Arm supported in chair without sling. Mental Status: A&Ox4 Pain: c/o pain in (L) arm ROM: RUE AROM WFL L UE NT STRENGTH: RUE 4/5 throughout LUE NT FUNCTIONAL MOBILITY/ADLS: Self Care Training [id number]: OT educated and trained pt in adaptive equipment including sock aid, dressing stick and long handled shoe horn. As well as education on energy conservation with ADL routines, self care routines and increased functional activity tolerance throughout her day. Pt was receptive to this and use of her adaptive equipment. BALANCE: Static sitting Normal Dynamic Sitting Normal SPECIAL TESTS: Daily Activity Limitations Standardized Measure [facility] [place] AM -PAC ?6 clicks? Daily Activity Inpatient Short Form: Raw score: 16 Standardized score: 35.96 CMS score: 53.32% INFORMED CONSENT/EDUCATION: Pt instructed in purpose of OT Consult and plan of care. ASSESSMENT: Patient is a 76-year-old female referred to occupational therapy services with diagnosis of s/p modified reverse total shoulder. Patient presents with clinical signs and symptoms consistent with dx.Pt was seen for OT consult only today. OT was able to answer any questions that pt had for dressing and bathing and provided pt with some adaptive equipment to decrease her strain on her (L) UE. [facility] score 16 Patient is assessed as a Moderate 88557 complexity based on the following: History: see above Examination: see functional activities as noted above Presentation: evolving Decision Making: [facility] 16 GOALS N/A seen for OT consult only. PLAN OF CARE/TREATMENT PLAN: N/A seen for OT consult only. DISCHARGE RECOMMENDATIONS Home when medically cleared per MD. TREATMENT TIME/MINUTES/CODES 52921, 25706, 40 minutes Deepthi Salmeron OTR/[facility]
[2022-02-21] MEDS: Normal Saline Flush 10 ML SYR IV ×2 (10:15→10:40)
[2022-02-21] MEDS: Docusate Sodium 100 MG CAP PO (10:38)
[2022-02-21] MEDS: MORPHine 4 MG/ML SYR IVP (10:39)
--- NOTE | 2022-02-21 11:15 | PDOC.CMIN ---
- If Service Date Differs Date of service: 02/21/22 Time of Service: 11:15 Care Management Initial Assess REASON FOR HOSPITALIZATION:: total shoulder arthroplasty PAST MEDICAL HISTORY/PAST SURGICAL HISTORY:: All Active Problems . Degenerative joint disease of right knee (Acute). Left knee DJD (Acute). Arthritis of left shoulder region (Acute). Arthritis of right shoulder region (Acute). Left rotator cuff tear (Acute). Medical History . Asthma. Broken wrist. (left). Essential tremor. (bilateral legs, per pt). 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 Tendinitis of long head of biceps brachii of left shoulder. Toxoplasmosis. 1970. Surgical History . H/O: hysterectomy. History of cataract surgery. (right). History of eyelid surgery. (bilateral) PREVIOUS FUNCTIONAL STATUS/SOCIAL/FAMILY SUPPORTS:: Marilin lives in [place] with her for 4 months out of the year and on the [place] [facility] for the other 8. She has one son who lives in [place], one son in [place] and a daughter in [place]. 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 She is very active and independent at baseline. CURRENT FUNCTIONAL STATUS:: Marilin was fully dressed waiting to be discharged when CM met with her. She shared that she will be returning to [place] in April and will have PT there. She understands her discharge instructions and denied the need for any services at this time. Has patient been provided with info about the portal/API?: Yes Did the patient sign up for the portal?: No CODE STATUS:: Full Code INSURANCE COVERAGE / FINANCIAL ISSUES:: Medicare. [employer] CURRENT HOME/COMMUNITY SERVICES/EQUIPMENT:: none PRIMARY CARE PHYSICIAN:: Walt Moseley POTENTIAL DISCHARGE NEEDS:: follow up with PCP, surgeon and plan of care PATIENT/FAMILY EDUCATION NEEDS:: Review of discharge instructions, limitations, activity, follow up plan, Ask Me Three TRANSPORTATION:: via private vehicle with daughter in law PLAN:: Marilin will be discharged home with no new services. She will follow up with her surgeon and plan of care and transport with family.
[2022-02-21 11:28] VITALS: BP 144/74; PULSE 66; RESP 17; TEMP 35.9; O2SAT 94
--- NOTE | 2022-02-21 11:36 | PDOC.CMDIS ---
- If Service Date Differs Date of service: 02/21/22 Time of Service: 11:36 LACE Index Scoring Tool - Questions: Length of Stay (in days): 1 Acuity (Admit via E.D.?): No E.D. Visits: 0 - Answers: Total Score: 1 Risk of Readmission: Low Risk Care Management Discharge Reason for Hospitalization: total shoulder arthroplasty Discharge Plan: Marilin will be discharged home with no new services. She will follow up with her surgeon and plan of care and transport with family. Patient/Family Education Needs: Review of discharge instructions, limitations, activity, follow up plan, Ask Me Three
--- NOTE | 2022-02-21 12:58 | PT.INNT ---
PT Notes Visit Reasons: Left Shoulder Surgery Patient was discharged prior to PT evaluation.
== END 2022-02-21 13:21 | disposition home or self-care (01) | DRG 483 ==
LOC: MS 14:49
PROVIDERS: Admitting Provider Student in an Organized Health Care Education/Training Program; PCP Family Medicine; Visit Provider Student in an Organized Health Care Education/Training Program
PROC: 0RRK00Z Replacement of Left Shoulder Joint with Reverse Ball and Socket Synthetic Substitute, Open Approach (ICD-10-PCS; CPT 23472; principal; 2022-02-20 09:45)
DX: M19.012 Primary osteoarthritis, left shoulder (principal); M75.102 Unspecified rotator cuff tear or rupture of left shoulder, not specified as traumatic; J45.909 Unspecified asthma, uncomplicated; G25.0 Essential tremor; M75.22 Bicipital tendinitis, left shoulder; Z79.899 Other long term (current) drug therapy
CPT/HCPCS: 23472; 23430; 76942; 94640; 73030; 94664; J0131; J0690; J1100; J2270; J2405; J2704; J3490

== ENCOUNTER 2022-03-05 15:13 | Outpatient (CLI) | payer MEDICARE, OTHER, SELFPAY ==
--- NOTE | 2022-03-05 14:45 | DI.RAD_ITS ---
Exam(s) XR SHOULDER LT COMPLETE 2+V EXAM: XR SHOULDER LT COMPLETE 2+V CLINICAL HISTORY: LEFT SHOULDER F/U. TECHNIQUE: 2D digital imaging was performed. COMPARISON: CR XR SHOULDER LT COMPLETE 2+V from 02/20/2022 FINDINGS: Two views Satisfactory position alignment the components of the recently placed reverse prosthesis. No fractur e or loosening IMPRESSION: DATA REPOSITORY: RADIATION DOSE DELIVERED:
== END 2022-03-05 15:14 | disposition home or self-care (01) ==
LOC: DIORS 15:14
PROVIDERS: PCP Family Medicine; Referring Provider Family Medicine; Visit Provider Student in an Organized Health Care Education/Training Program
DX: M75.102 Unspecified rotator cuff tear or rupture of left shoulder, not specified as traumatic (principal); Z47.89 Encounter for other orthopedic aftercare; Z98.890 Other specified postprocedural states
CPT/HCPCS: 73030

== ENCOUNTER 2022-04-02 14:50 | Outpatient (CLI) | payer MEDICARE, OTHER, SELFPAY ==
--- NOTE | 2022-04-02 13:45 | DI.RAD_ITS ---
Exam(s) XR SHOULDER LT COMPLETE 2+V EXAM: XR SHOULDER LT COMPLETE 2+V CLINICAL HISTORY: left shoulder f/u TECHNIQUE: COMPARISON: CR XR SHOULDER LT COMPLETE 2+V from 03/05/2022 FINDINGS: Three views were obtained and show a reverse shoulder prosthesis in position. The components appear well seated. No other significant bony abnormality seen. IMPRESSION: RADIATION DOSE DELIVERED: Total DLP
== END 2022-04-02 14:51 | disposition home or self-care (01) ==
LOC: DIORS 14:50
PROVIDERS: PCP Family Medicine; Referring Provider Family Medicine; Visit Provider Student in an Organized Health Care Education/Training Program
DX: Z47.89 Encounter for other orthopedic aftercare; M75.102 Unspecified rotator cuff tear or rupture of left shoulder, not specified as traumatic; M19.012 Primary osteoarthritis, left shoulder
CPT/HCPCS: 73030

== ENCOUNTER 2022-12-03 14:20 | Outpatient (CLI) | payer MEDICARE, OTHER, SELFPAY ==
--- NOTE | 2022-12-03 14:31 | DI.RAD_ITS ---
Exam(s) XR SHOULDER LT COMPLETE 2+V EXAM: XR SHOULDER LT COMPLETE 2+V CLINICAL HISTORY: F/U RTSA. TECHNIQUE: 2D digital imaging was performed. Three views. COMPARISON: CR XR SHOULDER LT COMPLETE 2+V from 04/02/2022 FINDINGS: BONES: No acute fracture is present. No bony destructive lesion is seen. JOINTS: No dislocation present. Has been no change in the alignment of the reverse shoulder prosthes is. SOFT TISSUE: Normal. IMPRESSION: Stable left reverse shoulder prosthesis. DATA REPOSITORY: RADIATION DOSE DELIVERED:
== END 2022-12-03 14:21 | disposition home or self-care (01) ==
LOC: DIORS 14:20
PROVIDERS: PCP Family Medicine; Referring Provider Family Medicine; Visit Provider Student in an Organized Health Care Education/Training Program
DX: M19.012 Primary osteoarthritis, left shoulder (principal); Z98.890 Other specified postprocedural states
CPT/HCPCS: 99213; 73030

== ENCOUNTER 2023-02-27 09:50 | Outpatient (CLI) | payer MEDICARE, OTHER, SELFPAY ==
--- NOTE | 2023-02-27 11:19 | DI.RAD_ITS ---
Exam(s) XR KNEE LT 3V AP,LAT,NEWTON EXAM: XR KNEE LT 3V AP,LAT,NEWTON CLINICAL HISTORY: left knee pain. TECHNIQUE: 2D digital imaging was performed of the left knee. Three images were obtained. AP, late ral and PA tunnel views were obtained. COMPARISON: CR XR knee LT 2V AP,lat from 02/10/2019 FINDINGS: BONES: No acute fracture is present. No bony destructive lesion is seen. JOINTS: There are degenerative changes seen in the left knee characterized by joint space narrowing a nd spurring. The findings are most marked at the patellofemoral joint. There is chondrocalcinosis i n the femoral tibial joint. No joint effusion is seen. No loose body. SOFT TISSUE: Normal. IMPRESSION: Degenerative changes of the left knee. DATA REPOSITORY: RADIATION DOSE DELIVERED:
--- NOTE | 2023-02-27 11:19 | DI.RAD_ITS ---
Exam(s) XR FOOT LT COMPLETE EXAM: XR FOOT LT COMPLETE CLINICAL HISTORY: foot pain. TECHNIQUE: 2D digital imaging was performed of the left foot. Four images were obtained. AP, obliq ue and lateral views were obtained. COMPARISON: No exams were available for comparison FINDINGS: BONES: No acute fracture is present. No bony destructive lesion is seen. Hammertoe deformities are se en at the 2nd through 4th toes. JOINTS: No dislocation present. Degenerative changes are seen in the foot particularly at the 1st MTP joint. SOFT TISSUE: There is soft tissue swelling of the foot. No radiopaque foreign bodies. IMPRESSION: No acute fracture or dislocation. DATA REPOSITORY: RADIATION DOSE DELIVERED:
== END 2023-02-27 09:51 | disposition home or self-care (01) ==
PROVIDERS: PCP Family Medicine; Referring Provider Family Medicine; Visit Provider Student in an Organized Health Care Education/Training Program
DX: M17.12 Unilateral primary osteoarthritis, left knee (principal); M76.822 Posterior tibial tendinitis, left leg
CPT/HCPCS: 20610; 73562; 73630; J1040

== ENCOUNTER 2023-03-04 13:40 | Outpatient (CLI) | payer MEDICARE, OTHER, SELFPAY ==
--- NOTE | 2023-03-04 13:55 | DI.RAD_ITS ---
Exam(s) XR SHOULDER LT COMPLETE 2+V EXAM: XR SHOULDER LT COMPLETE 2+V CLINICAL HISTORY: F/U LEFT RTSA. TECHNIQUE: 2D digital imaging was performed. Three views. COMPARISON: CR XR SHOULDER LT COMPLETE 2+V from 12/03/2022 FINDINGS: There has been no change in the alignment of the reverse shoulder prosthesis. There are no abnormal surrounding bony lucencies. DATA REPOSITORY: RADIATION DOSE DELIVERED:
== END 2023-03-04 13:41 | disposition home or self-care (01) ==
LOC: DIORS 13:42
PROVIDERS: PCP Family Medicine; Referring Provider Family Medicine; Visit Provider Student in an Organized Health Care Education/Training Program
DX: Z47.1 Aftercare following joint replacement surgery (principal); Z96.612 Presence of left artificial shoulder joint; M19.012 Primary osteoarthritis, left shoulder
CPT/HCPCS: 99213; 73030